=== PATIENT | male | born 1945 | race Caucasian/White ===

== ENCOUNTER 2017-02-01 22:03 | Inpatient (IN) | payer OTHER ==
--- NOTE | 2017-02-02 00:22 | DR.GENAD ---
HPI - PCP Primary Care Physician: MANSOOR - HPI Comment HPI Comment: PATIENT IS A DIABETIC WITH PREVIOUS SUGERY ON BOTH FEET. - Complaint/Symptoms Chief Complaint Doctors Comments: PAIN, SWELLING AND REDNESS LEFT FOOT AND LEG. PUNCTURE WOUND UNDER LEFT FOOT. PATIENT SAID IT DRAINS WHEN WALK. Chief Complaint:: REDNESS TO LT LOWER LEG FOR 3 DAYS - Nurses notes reviewed Nurses Notes Review: Yes - Source History Provided: Patient - Mode of Arrival Mode of Arrival: Ambulatory - Timing Onset of Chief Complaint: 01/30/17 Came on: Suddenly - Duration Duration: Constant Duration: Days - Severity Severity: Moderate PMH - PMH Past Medical History: Yes Past Medical History: Coronary Artery Disease, Diabetes, Hypertension, Renal Disease Past Surgical History: Yes Surgical History: CABG/Valve Surgery - Family History History of Family Medical Conditions: No - Social History Does any household member use tobacco: No Do you use any recreational Drugs:: No Lives With: Family Lives Where: Home - infectious screening In the last 2 months have you had wt loss of >10#?: NO Have you had fever, night sweats or hemotysis?: No Have you traveled outside the country in the last 6 months?: No Isolation: Standard ROS - Review of Systems Constitutional: Weakness, Fatigue. negative: Chills, Fever Eyes: negative: Eye Pain, Discharge ENTM: negative: Ear Pain, Nose Discharge, Nose Congestion, Throat Pain Respiratoy: Non-Productive Cough, Short of Breath (ON EXERTION). negative: Wheezing, Hemoptysis Cardiovascular: Chest Pain, Edema Gastrointestinal/Abdominal: Abdominal Pain. negative: Diarrhea, Nausea, Vomiting Genitourinary: negative: Dysuria, Hematuria Neurological: Headache, Weakness, Dizziness Musculoskeletal: Joint Pain, Joint Swelling, Muscle Pain Integumentary: Change in Color, Rash Hematologic/Lymphatic: Easy Bleeding, Easy Bruising Endocrine: No Symptoms Reported. negative: Flushing, Increased Thirst, Increased Urine All Other Systems: Reviewed and Negative PE - Vital Signs Vitals: Temperature 99.8 F Pulse Rate [Right Brachial] 99 Pulse Rate 107 Respiratory Rate 18 Blood Pressure [Right Arm] 106/62 Blood Pressure [Left Arm] 126/60 Blood Pressure 101/55 O2 Sat by Pulse Oximetry 96 - General Limitations: No Limitations General Appearance: Alert - Head Head Exam: Normal Inspection - Eyes Eye exam: Normal Appearance - ENT ENT Exam: Normal External Ear Exam External Ear Exam: Normal External Inspection TM/Canal Exam: Bilateral Normal Nose Exam: Normal Nose Exam Mouth Exam: Normal Inspection Throat Exam: Normal Inspection - Neck Neck Exam: Trachea Midline - Chest Chest Inspection: Symmetric Chest Wall Rise - Respiratory Respiratory Exam: Normal Lung Sounds Bilat Respiratory Exam: Bilateral Rhonchi, Upper Rhonchi, Lower Rhonchi - Cardiovascular Cardiovascular Exam: Regular Rate, Normal Rhythm, Normal Heart Sounds - Abdominal Exam Abdominal Exam: Normal Bowel Sounds, Soft. negative: Tenderness - Extremities Extremities Exam: Tenderness (LEFT FOOT AND LEG WITH REDNESS BELOW LEFT KNEE FROM LEFT FOOT.) - Back Back Exam: Paraspinal Tenderness - Neurologic Neurological Exam: Alert, Oriented X3 - Psychiatric Psychiatric Exam: Normal Affect, Normal Mood - Skin Skin Exam: Erythema MDM - Additional Information Additional Information Obtained From: Family - Differential Diagnosis Differential Diagnosis: CELLULITIS LT FOOT AND LEG, DIABETIC FOOT ULCER/PUNTURE WOUND BELOW LT FOOT Course - Treatment Treatment: ZOSYN ANS VANCOMYCIN STARTED. IV FLUIDS STATED IN ED, - Consultation Consultation Comments: DISCUSS PATIENT WITH DR. NARVAEZ, HE WILL ADMIT PATIENT. - Education/Counseling Education/Counseling: Patient, Family, Education Educated On: Treatment, Diagnosis ROR - Labs Reviewed Laboratory Results Reviewed?: Yes Result Diagrams: 02/02/17 05:21 02/02/17 05:21 Laboratory: WBC 15.9 X10^3/uL (3.6-10.0) H 02/02/17 05:21 RBC 4.44 X10^6/uL (4.7-6.0) L 02/02/17 05:21 Hgb 13.1 g/dL (13.5-18.0) L 02/02/17 05:21 Hct 38.6 % (42.0-54.0) L 02/02/17 05:21 MCV 87.0 fL (80.0-100.0) 02/02/17 05:21 MCH 29.6 pg (27.0-34.0) 02/02/17 05:21 MCHC 34.0 g/dL (33.0-35.0) 02/02/17 05:21 RDW 14.9 % (11.6-16.5) 02/02/17 05:21 Plt Count 134 X10^3/uL (150.0-450.0) L 02/02/17 05:21 MPV 9.3 fL (7.4-11.0) 02/02/17 05:21 Neut % 79.4 % (42.0-75.0) H 02/02/17 05:21 Lymph % 10.4 % (21.0-51.0) L 02/02/17 05:21 [place] % 9.3 % (0.0-13.0) 02/02/17 05:21 Eos % 0.6 % (0.9-2.9) L 02/02/17 05:21 Baso % 0.3 % (0.2-1.0) 02/02/17 05:21 Neut # 12.6 x10^3/uL (2.2-4.8) H 02/02/17 05:21 Lymph # 1.6 X10^3/uL (1.3-2.9) 02/02/17 05:21 [place] # 1.5 x10^3/uL (0.3-0.8) H 02/02/17 05:21 Eos # 0.1 x10^3/uL (0.0-0.2) 02/02/17 05:21 Baso # 0.0 X10^3/uL (0.0-0.1) 02/02/17 05:21 Absolute Nucleated RBC 0.0 /100WBC 02/02/17 05:21 Sodium 138 mmol/L (136-145) 02/02/17 05:21 Corrected Sodium 139 mmol/L (136-145) 02/02/17 05:21 Potassium 3.5 mmol/L (3.5-5.1) 02/02/17 05:21 Chloride 104 mmol/L (98-107) 02/02/17 05:21 Carbon Dioxide 23.1 mmol/L (21-32) 02/02/17 05:21 BUN 17 mg/dL (7-18) 02/02/17 05:21 Creatinine 1.30 mg/dL (0.70-1.30) 02/02/17 05:21 Est GFR (MDRD) Af Amer > 60 (>60) 02/02/17 05:21 Est GFR (MDRD) Non-Af 58 (>60) L 02/02/17 05:21 Glucose 124 mg/dL (65-99) H 02/02/17 05:21 POC Glucose (mg/dL) 155 mg/dL (65-99) H 02/02/17 07:08 Calcium 8.6 mg/dL (8.5-10.1) 02/02/17 05:21 Corrected Calcium 9.4 mg/dL (8.5-10.1) 02/02/17 05:21 Total Bilirubin 1.70 mg/dL (0.2-1.0) H 02/02/17 05:21 AST 12 Units/L (15-37) L 02/02/17 05:21 ALT 14 Units/L (12-78) 02/02/17 05:21 Alkaline Phosphatase 49 Units/L (46-116) 02/02/17 05:21 Total Protein 6.8 g/dL (6.4-8.2) 02/02/17 05:21 Albumin 3.0 g/dL (3.4-5.0) L 02/02/17 05:21 Globulin 3.8 g/dL (2.5-4.5) 02/02/17 05:21 Albumin/Globulin Ratio 0.8 Ratio (1.1-2.1) L 02/02/17 05:21 - XRAY XRAY Interpreted by: Radiologist XRAY Findings: REPORT DISCUSS WITH PATIENT AND FAMILY. - Diagnosis Discharge Problem: Cellulitis of left lower extremity Diabetic foot ulcer Qualifiers: Diabetic foot ulcer location: midfoot Diabetes mellitus type: type 1 Laterality : left Non-pressure ulcer stage: unspecified non-pressure ulcer stage Qualified Code(s): E10.621 - Type 1 diabetes mellitus with foot ulcer - Discharge Plan Disposition: ADMITTED INPATIENT Condition: Stable - Follow ups/Referrals - Instructions
[2017-02-02 00:50] LABS: BASOPHILS # (AUTO) 0.1 X10^3/uL (0.0-0.1); BASOPHILS % (AUTO) 0.7 % (0.2-1.0); EOSINOPHILS # (AUTO) 0.1 x10^3/uL (0.0-0.2); EOSINOPHILS % (AUTO) 0.6 % (0.9-2.9); HEMATOCRIT 38.9 % (42.0-54.0); HEMOGLOBIN 13.1 g/dL (13.5-18.0); LYMPHOCYTES # (AUTO) 1.7 X10^3/uL (1.3-2.9); LYMPHOCYTES % (AUTO) 10.4 % (21.0-51.0); MEAN CORPUSCULAR HEMOGLOBIN 29.4 pg (27.0-34.0); MEAN CORPUSCULAR HGB CONC 33.7 g/dL (33.0-35.0); MEAN CORPUSCULAR VOLUME 87.4 fL (80.0-100.0); MEAN PLATELET VOLUME 8.6 fL (7.4-11.0); MONOCYTES # (AUTO) 1.5 x10^3/uL (0.3-0.8); MONOCYTES % (AUTO) 8.9 % (0.0-13.0); NEUTROPHILS # (AUTO) 13.2 x10^3/uL (2.2-4.8); NEUTROPHILS % (AUTO) 79.4 % (42.0-75.0); PLATELET COUNT 132 X10^3/uL (150.0-450.0); RED BLOOD COUNT 4.44 X10^6/uL (4.7-6.0); RED CELL DISTRIBUTION WIDTH 14.7 % (11.6-16.5); WHITE BLOOD COUNT 16.6 X10^3/uL (3.6-10.0)
[2017-02-02 01:09] LABS: ALANINE AMINOTRANSFERASE 15 Units/L (12-78); ALBUMIN 3.3 g/dL (3.4-5.0); ALKALINE PHOSPHATASE 56 Units/L (46-116); ASPARTATE AMINO TRANSFERASE 13 Units/L (15-37); BLOOD UREA NITROGEN 19 mg/dL (7-18); CALCIUM 8.9 mg/dL (8.5-10.1); CARBON DIOXIDE 24.5 mmol/L (21-32); CHLORIDE 101 mmol/L (98-107); COR CA(FOR HYPOALB) 9.5 mg/dL (8.5-10.1); COR NA(FOR HYPERGLY) 138 mmol/L (136-145); CREATININE 1.42 mg/dL (0.70-1.30); SODIUM 136 mmol/L (136-145); TOTAL PROTEIN 7.2 g/dL (6.4-8.2); eGFR BLACK RACES > 60 (>60); eGFR NON BLACK RACES 52 (>60)
--- NOTE | 2017-02-02 02:58 | RAD ---
Three views of the left foot Indication: Redness and swelling with foot wound Findings: There is circumferential soft tissue swelling within the left foot with skin ulceration bony ng the plantar aspect of the midfoot. There is lateral subluxation of the 2nd, 3rd and 4th metatarsal bases consistent with severe Lisfranc injury. There is fragmentation of the midfoot with collapse of the navicular bone consistent with a neuropathic joint in association with severe ligamentous disrup tion/insufficiency of the Lisfranc joint. There is no definite cortical destruction identified to sug gest osteomyelitis based on radiographic evaluation. Dependent changes Achilles and plantar fascia. C alcified atherosclerotic disease of posterior tibialis artery. Impression: See above. Reported By:
[2017-02-02] MEDS ORDERED: MORPHINE SULFATE INJ 2 MG INJ IVP PRN (03:12)
[2017-02-02] MEDS ORDERED: ZOFRAN INJ 4 MG VIAL 16 MG, ATIVAN INJ 2 MG VIAL 1 MG, DECADRON INJ 10 MG in NS 50 ML I... IV PRN (03:18)
[2017-02-02] MEDS ORDERED: ZOFRAN INJ 4 MG VIAL IVP PRN (03:18)
[2017-02-02] MEDS ORDERED: ZOSYN VIAL 3.375 GM IV ONE (03:20)
[2017-02-02 03:58] VITALS: BMI 31.9
[2017-02-02] MEDS: NS 1000 ML 1,000 ML IV SCH ×3 (04:14→20:58)
[2017-02-02] MEDS: ZOSYN VIAL 3.375 GM 3.375 GM in NS 100 ML IV + SPIKE MINIBAG* 100 ML IV SCH ×2 (04:14→05:47)
[2017-02-02] MEDS ORDERED: VANCOMYCIN HCL 1 GM VIAL ONE (04:54)
[2017-02-02] MEDS ORDERED: D5W 250 ML IV 250 ML IV ONE (04:54)
[2017-02-02] MEDS: VANCOMYCIN HCL 500 MG VIAL 750 MG in D5W 250 ML IV 250 ML IV SCH ×2 (05:07→10:08)
[2017-02-02 06:28] LABS: BASOPHILS % (AUTO) 0.3 % (0.2-1.0); EOSINOPHILS # (AUTO) 0.1 x10^3/uL (0.0-0.2); EOSINOPHILS % (AUTO) 0.6 % (0.9-2.9); HEMATOCRIT 38.6 % (42.0-54.0); HEMOGLOBIN 13.1 g/dL (13.5-18.0); LYMPHOCYTES # (AUTO) 1.6 X10^3/uL (1.3-2.9); LYMPHOCYTES % (AUTO) 10.4 % (21.0-51.0); MEAN CORPUSCULAR HEMOGLOBIN 29.6 pg (27.0-34.0); MEAN PLATELET VOLUME 9.3 fL (7.4-11.0); MONOCYTES # (AUTO) 1.5 x10^3/uL (0.3-0.8); MONOCYTES % (AUTO) 9.3 % (0.0-13.0); NEUTROPHILS # (AUTO) 12.6 x10^3/uL (2.2-4.8); NEUTROPHILS % (AUTO) 79.4 % (42.0-75.0); PLATELET COUNT 134 X10^3/uL (150.0-450.0); RED BLOOD COUNT 4.44 X10^6/uL (4.7-6.0); RED CELL DISTRIBUTION WIDTH 14.9 % (11.6-16.5); WHITE BLOOD COUNT 15.9 X10^3/uL (3.6-10.0)
[2017-02-02 06:42] LABS: ALANINE AMINOTRANSFERASE 14 Units/L (12-78); ALKALINE PHOSPHATASE 49 Units/L (46-116); ASPARTATE AMINO TRANSFERASE 12 Units/L (15-37); BLOOD UREA NITROGEN 17 mg/dL (7-18); CALCIUM 8.6 mg/dL (8.5-10.1); CARBON DIOXIDE 23.1 mmol/L (21-32); CHLORIDE 104 mmol/L (98-107); COR CA(FOR HYPOALB) 9.4 mg/dL (8.5-10.1); COR NA(FOR HYPERGLY) 139 mmol/L (136-145); SODIUM 138 mmol/L (136-145); TOTAL PROTEIN 6.8 g/dL (6.4-8.2); eGFR BLACK RACES > 60 (>60); eGFR NON BLACK RACES 58 (>60)
[2017-02-02] MEDS ORDERED: TYLENOL #3 TAB (W/CODEINE) PO PRN (11:52)
[2017-02-02] MEDS ORDERED: PATIENT'S HOME MEDICATION (Metformin Hcl [Metformin Hcl] 1 TAB) PO SCH (12:00)
[2017-02-02] MEDS ORDERED: PATIENT'S HOME MEDICATION (Misc Home Med 1 DROP) AFFEYE SCH (13:00)
[2017-02-02] MEDS ORDERED: ZOSYN VIAL 3.375 GM 3.375 GM in NS 50 ML IV 50 ML IV SCH (14:00)
[2017-02-02] MEDS ORDERED: BACTRIM DS TAB PO SCH (15:16)
[2017-02-02] MEDS: SYNTHROID 175 mcg TAB PO SCH (15:44)
[2017-02-02] MEDS: NORVASC TAB 5 MG PO SCH (15:44)
[2017-02-02] MEDS: ASPIRIN PO SCH (15:44)
[2017-02-02] MEDS: AMARYL TAB 4 MG PO SCH ×2 (15:44→21:11)
[2017-02-02] MEDS: PROLENSA OPHTH 1 DOSE AFFEYE SCH (15:45)
[2017-02-02] MEDS: PRED FORTE 1 % AFFEYE SCH ×3 (15:45→21:15)
[2017-02-02] MEDS: GLUCOPHAGE PO SCH (16:45)
[2017-02-02] MEDS: TEFLARO 600 MG in D5W 50 ML IV 50 ML IV SCH ×2 (16:45→21:11)
[2017-02-02] MEDS: LIPITOR TAB 40 MG PO SCH (21:11)
[2017-02-02] MEDS: FLOMAX PO SCH (21:15)
[2017-02-03] MEDS: NS 1000 ML 1,000 ML IV SCH ×3 (04:44→21:30)
[2017-02-03] MEDS ORDERED: GLUCOPHAGE ONE ×2 (05:27→17:33)
[2017-02-03 05:33] LABS: BASOPHILS % (AUTO) 0.1 % (0.2-1.0); EOSINOPHILS % (AUTO) 0.1 % (0.9-2.9); HEMATOCRIT 36.1 % (42.0-54.0); HEMOGLOBIN 12.3 g/dL (13.5-18.0); LYMPHOCYTES # (AUTO) 1.2 X10^3/uL (1.3-2.9); LYMPHOCYTES % (AUTO) 6.2 % (21.0-51.0); MEAN CORPUSCULAR HEMOGLOBIN 29.6 pg (27.0-34.0); MEAN CORPUSCULAR HGB CONC 34.1 g/dL (33.0-35.0); MEAN CORPUSCULAR VOLUME 86.9 fL (80.0-100.0); MEAN PLATELET VOLUME 8.8 fL (7.4-11.0); MONOCYTES # (AUTO) 1.7 x10^3/uL (0.3-0.8); NEUTROPHILS # (AUTO) 16.2 x10^3/uL (2.2-4.8); NEUTROPHILS % (AUTO) 84.6 % (42.0-75.0); PLATELET COUNT 140 X10^3/uL (150.0-450.0); RED BLOOD COUNT 4.15 X10^6/uL (4.7-6.0); RED CELL DISTRIBUTION WIDTH 14.5 % (11.6-16.5); WHITE BLOOD COUNT 19.2 X10^3/uL (3.6-10.0)
[2017-02-03 05:46] LABS: ALANINE AMINOTRANSFERASE 12 Units/L (12-78); ALBUMIN 2.4 g/dL (3.4-5.0); ALKALINE PHOSPHATASE 38 Units/L (46-116); ASPARTATE AMINO TRANSFERASE 13 Units/L (15-37); BLOOD UREA NITROGEN 14 mg/dL (7-18); CALCIUM 7.8 mg/dL (8.5-10.1); CARBON DIOXIDE 21.2 mmol/L (21-32); CHLORIDE 103 mmol/L (98-107); COR CA(FOR HYPOALB) 9.1 mg/dL (8.5-10.1); COR NA(FOR HYPERGLY) 137 mmol/L (136-145); SODIUM 136 mmol/L (136-145); TOTAL PROTEIN 6.4 g/dL (6.4-8.2); eGFR BLACK RACES > 60 (>60); eGFR NON BLACK RACES > 60 (>60)
[2017-02-03] MEDS: GLUCOPHAGE PO SCH ×2 (06:10→17:34)
[2017-02-03] MEDS: PROLENSA OPHTH 1 DOSE AFFEYE SCH (09:15)
[2017-02-03] MEDS: PRED FORTE 1 % AFFEYE SCH ×4 (09:15→21:31)
[2017-02-03] MEDS: AMARYL TAB 4 MG PO SCH ×2 (09:16→21:30)
[2017-02-03] MEDS: SYNTHROID 175 mcg TAB PO SCH (09:16)
[2017-02-03] MEDS: NORVASC TAB 5 MG PO SCH (09:16)
[2017-02-03] MEDS: ASPIRIN PO SCH (09:16)
[2017-02-03] MEDS: TEFLARO 600 MG in D5W 50 ML IV 50 ML IV SCH ×2 (09:36→21:30)
[2017-02-03] MEDS ORDERED: PHARMACY CONSULT - DOSE _____ XX SCH (10:00)
[2017-02-03] MEDS: DIFLUCAN 200 MG IV PREMIX* 200 MG/100 ML BAG IV SCH (11:27)
[2017-02-03] MEDS: SNACK - Diabetic Appropriate PO SCH ×2 (11:45→21:30)
[2017-02-03] MEDS: FLOMAX PO SCH (21:30)
[2017-02-03] MEDS: LIPITOR TAB 40 MG PO SCH (21:30)
[2017-02-04] MEDS: NS 1000 ML 1,000 ML IV SCH ×2 (05:27→13:35)
[2017-02-04] MEDS ORDERED: GLUCOPHAGE ONE ×2 (05:51→16:17)
[2017-02-04] MEDS: GLUCOPHAGE PO SCH ×2 (06:06→16:42)
[2017-02-04 06:18] LABS: BASOPHILS % (AUTO) 0.2 % (0.2-1.0); HEMATOCRIT 36.1 % (42.0-54.0); HEMOGLOBIN 12.3 g/dL (13.5-18.0); LYMPHOCYTES # (AUTO) 1.4 X10^3/uL (1.3-2.9); LYMPHOCYTES % (AUTO) 7.3 % (21.0-51.0); MEAN CORPUSCULAR HEMOGLOBIN 29.5 pg (27.0-34.0); MEAN CORPUSCULAR VOLUME 86.7 fL (80.0-100.0); MEAN PLATELET VOLUME 8.5 fL (7.4-11.0); MONOCYTES # (AUTO) 1.5 x10^3/uL (0.3-0.8); MONOCYTES % (AUTO) 7.6 % (0.0-13.0); NEUTROPHILS # (AUTO) 16.5 x10^3/uL (2.2-4.8); NEUTROPHILS % (AUTO) 84.9 % (42.0-75.0); PLATELET COUNT 158 X10^3/uL (150.0-450.0); RED BLOOD COUNT 4.16 X10^6/uL (4.7-6.0); RED CELL DISTRIBUTION WIDTH 14.6 % (11.6-16.5); WHITE BLOOD COUNT 19.4 X10^3/uL (3.6-10.0)
[2017-02-04 06:56] LABS: ALANINE AMINOTRANSFERASE 14 Units/L (12-78); ALBUMIN 2.4 g/dL (3.4-5.0); ALKALINE PHOSPHATASE 45 Units/L (46-116); ASPARTATE AMINO TRANSFERASE 16 Units/L (15-37); BLOOD UREA NITROGEN 13 mg/dL (7-18); CALCIUM 8.2 mg/dL (8.5-10.1); CARBON DIOXIDE 22.4 mmol/L (21-32); CHLORIDE 103 mmol/L (98-107); COR CA(FOR HYPOALB) 9.5 mg/dL (8.5-10.1); COR NA(FOR HYPERGLY) 136 mmol/L (136-145); CREATININE 1.37 mg/dL (0.70-1.30); SODIUM 136 mmol/L (136-145); TOTAL PROTEIN 6.6 g/dL (6.4-8.2); eGFR BLACK RACES > 60 (>60); eGFR NON BLACK RACES 54 (>60)
[2017-02-04] MEDS: DIFLUCAN 200 MG IV PREMIX* 200 MG/100 ML BAG IV SCH (10:02)
[2017-02-04] MEDS: TEFLARO 600 MG in D5W 50 ML IV 50 ML IV SCH ×2 (10:02→22:07)
[2017-02-04] MEDS: ASPIRIN PO SCH (10:03)
[2017-02-04] MEDS: NORVASC TAB 5 MG PO SCH (10:03)
[2017-02-04] MEDS: SYNTHROID 175 mcg TAB PO SCH (10:03)
[2017-02-04] MEDS: PROLENSA OPHTH 1 DOSE AFFEYE SCH (10:03)
[2017-02-04] MEDS: AMARYL TAB 4 MG PO SCH ×2 (10:03→22:07)
[2017-02-04] MEDS: PRED FORTE 1 % AFFEYE SCH ×4 (10:03→22:21)
[2017-02-04] MEDS ORDERED: XOPENEX 1.25 MG/3 ML NEBULE NEB ONE (13:38)
[2017-02-04] MEDS: FLOMAX PO SCH (22:07)
[2017-02-04] MEDS: LIPITOR TAB 40 MG PO SCH (22:08)
[2017-02-04] MEDS: SNACK - Diabetic Appropriate PO SCH (22:20)
[2017-02-05] MEDS: NS 1000 ML 1,000 ML IV SCH ×4 (00:50→18:43)
[2017-02-05] MEDS ORDERED: MAXIPIME 2 GM in NS 100 ML IV + SPIKE MINIBAG* 100 ML IV SCH (02:00)
[2017-02-05] MEDS ORDERED: NS 100 ML IV 100 ML IV ONE (03:23)
[2017-02-05] MEDS ORDERED: MAXIPIME ONE ×2 (03:23→10:06)
[2017-02-05] MEDS ORDERED: MAXIPIME 2 GM in NS 100 ML IV 100 ML IV SCH (03:30)
[2017-02-05 05:29] LABS: BASOPHILS % (AUTO) 0.2 % (0.2-1.0); EOSINOPHILS # (AUTO) 0.1 x10^3/uL (0.0-0.2); EOSINOPHILS % (AUTO) 0.5 % (0.9-2.9); HEMATOCRIT 34.4 % (42.0-54.0); HEMOGLOBIN 11.6 g/dL (13.5-18.0); LYMPHOCYTES # (AUTO) 1.4 X10^3/uL (1.3-2.9); LYMPHOCYTES % (AUTO) 8.5 % (21.0-51.0); MEAN CORPUSCULAR HEMOGLOBIN 29.4 pg (27.0-34.0); MEAN CORPUSCULAR HGB CONC 33.8 g/dL (33.0-35.0); MEAN CORPUSCULAR VOLUME 86.7 fL (80.0-100.0); MEAN PLATELET VOLUME 8.4 fL (7.4-11.0); MONOCYTES # (AUTO) 1.3 x10^3/uL (0.3-0.8); MONOCYTES % (AUTO) 7.7 % (0.0-13.0); NEUTROPHILS # (AUTO) 13.7 x10^3/uL (2.2-4.8); NEUTROPHILS % (AUTO) 83.1 % (42.0-75.0); PLATELET COUNT 170 X10^3/uL (150.0-450.0); RED BLOOD COUNT 3.97 X10^6/uL (4.7-6.0); RED CELL DISTRIBUTION WIDTH 14.4 % (11.6-16.5); WHITE BLOOD COUNT 16.5 X10^3/uL (3.6-10.0)
[2017-02-05] MEDS ORDERED: GLUCOPHAGE ONE ×2 (05:51→16:43)
[2017-02-05] MEDS: GLUCOPHAGE PO SCH ×2 (06:04→16:54)
[2017-02-05 06:53] LABS: ALANINE AMINOTRANSFERASE 18 Units/L (12-78); ALBUMIN 2.2 g/dL (3.4-5.0); ALKALINE PHOSPHATASE 43 Units/L (46-116); ASPARTATE AMINO TRANSFERASE 25 Units/L (15-37); BLOOD UREA NITROGEN 11 mg/dL (7-18); CALCIUM 8.1 mg/dL (8.5-10.1); CARBON DIOXIDE 20.5 mmol/L (21-32); CHLORIDE 105 mmol/L (98-107); COR CA(FOR HYPOALB) 9.5 mg/dL (8.5-10.1); CREATININE 1.19 mg/dL (0.70-1.30); SODIUM 137 mmol/L (136-145); TOTAL PROTEIN 6.4 g/dL (6.4-8.2); eGFR BLACK RACES > 60 (>60); eGFR NON BLACK RACES > 60 (>60)
[2017-02-05] MEDS: PRED FORTE 1 % AFFEYE SCH ×4 (09:55→21:29)
[2017-02-05] MEDS: AMARYL TAB 4 MG PO SCH ×2 (09:55→21:27)
[2017-02-05] MEDS: NORVASC TAB 5 MG PO SCH (09:57)
[2017-02-05] MEDS: PROLENSA OPHTH 1 DOSE AFFEYE SCH (09:59)
[2017-02-05] MEDS: TEFLARO 600 MG in D5W 50 ML IV 50 ML IV SCH (10:00)
[2017-02-05] MEDS ORDERED: NS 50 ML IV 50 ML IV ONE (10:06)
[2017-02-05] MEDS: SYNTHROID 175 mcg TAB PO SCH (10:07)
[2017-02-05] MEDS: DIFLUCAN 200 MG IV PREMIX* 200 MG/100 ML BAG IV SCH (10:08)
[2017-02-05] MEDS: ASPIRIN PO SCH (10:08)
[2017-02-05] MEDS ORDERED: HIBICLENS WASH ONE (12:19)
--- NOTE | 2017-02-05 13:16 | DR.CONSULT ---
Consult - Consultation for Day of: Date: 02/05/17 - Chief Complaint Chief Complaint: Left foot edema and cellulitis. - Allergies Allergies/Adverse Reactions: Allergies Allergy/AdvReac Type Severity Reaction Status Date / Time No Known Drug Allergies Allergy Verified 02/01/17 22:05 - History of Present Illness History of Present Illness: The patient is a 71 year old male with DM that presented to the ER with left foot cellulitis. The patient admits to a plantar wound with serous drainage for several days. 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 (+) LE neuropathy. The patient denies any hardware to the left foot. The patient was admitted and placed on IV abx. Increased edema was noted along the dorsal aspect of the foot with skin breakdown laterally. Surgery was consulted for possible incision and drainage. - Past Medical History Past Medical History: Coronary Artery Disease, Diabetes, Hypertension, Renal Disease - Past Surgical History Surgical History: CABG/Valve Surgery - Family History Family Medical History: Coronary Artery Disease, Hypertension - Social History Does patient currently use any type of tobacco product: No Have you used tobacco products in the last 12 months: No Type of Tobacco Use: Smokeless Does any household member use tobacco: No Alcohol Use: None Drug Use: None - Medications Home Medications: Amlodipine Besylate [NORVASC 5 MG *] 1 tab PO DAILY 02/02/17 [History Confirmed 02/02/17] Aspirin [ASPIRIN 325 MG *] 1 tab PO DAILY 02/02/17 [History Confirmed 02/02/17] Atorvastatin Calcium [LIPITOR Tab 40 mg *] 1 tab PO HS 02/02/17 [History Confirmed 02/02/17] Bromfenac Sodium [Prolensa] 1 drop AFFEYE DAILY 02/02/17 [History Confirmed ] Ergocalciferol [Vitamin D (1.25MG)] 1 cap PO WEEKLY 02/02/17 [History Confirmed 02/02/17] Glimepiride [Glimepiride] 1 tab PO BID 02/02/17 [History Confirmed 02/02/17] Levothyroxine Sodium 1 tab PO DAILY 02/02/17 [History Confirmed 02/02/17] Metformin HCl 1 tab PO BID 02/02/17 [History Confirmed 02/02/17] Misc Home Med [Patient's Home Medication (Non-PO)] 1 drop AFFEYE QID 02/02/17 [ History Confirmed 02/02/17] PrednisoLONE ACETATE (OPHTH) [PRED FORTE (OPHTH) SUSP 1 % *] 1 drop AFFEYE QID 02/02/17 [History Confirmed 02/02/17] Tamsulosin HCl [FLOMAX (GENERIC) 0.4 MG *] 1 tab PO DAILY 02/02/17 [History Confirmed 02/02/17] - Review of Systems Constitutional: No Symptoms Reported Eyes: No Symptoms Reported ENT: No Symptoms Reported Respiratory: No Symptoms Reported Cardiovascular: No Symptoms Reported Gastrointestinal: No Symptoms Reported Genitourinary: No Symptoms Reported Musculoskeletal: Foot Pain Skin: Wound Neurological: Other (Neuropathy) - Physical Exam Vital Signs: Temperature 99.8 F Pulse Rate [Right Brachial] 89 Pulse Rate 107 Respiratory Rate 20 Blood Pressure [Right Arm] 135/79 Blood Pressure [Left Arm] 126/60 Blood Pressure 101/55 O2 Sat by Pulse Oximetry 96 Oriented: Normal Eyes: Normal Respiratory: Clear Throughout Cardiovascular: Normal Auscultation: Bowel Sounds: Normal Palpation: Normal Tenderness: Normal Skin: Red (Left LE and foot. Erythema improved from mid-calf where skin franks are present from admission per patient.), Wound (Left lateral foot distal to heel. Skin sloughing with serous drainage.) Musculoskeletal: Swelling (Left foot.), Tender (Left foot arch.), Pulse Deficit (Unable to palpate left DP or PT due to edema. Femoral and popliteal palpable.) Psychiatric: Normal Mood Description: Calm Affect: Normal Speech Pattern: Clear - Plan Plan: 71 year old male with DM and neuropathy. Left LE cellulitis and foot edema. Agree with broad spectrum abx. Increased foot edema since admission concerning for abscess formation. No drainagable fluid collection on exam. Recommend CT with IV contrast to further evaluate. May need subsequent MRI and ESR to ensure no OM present. If fluid collection identified, will proceed with I&D. Elevate left LE above level of heart. Local wound care. Tight glycemic control. Follow up LE arterial ultrasound but pulses proximally are palpable. Suspect microvascular disease and neuropathy primary etiology.
[2017-02-05] MEDS: PHARMACY CONSULT - VANCOMYCIN XX SCH (18:17)
--- NOTE | 2017-02-05 20:36 | CT ---
HISTORY: LEFT FOOT WOUND. Study: CT left lower extremity with contrast Comparison: Left foot series dated same day. Technique: Multiple axial images of the left lower extremity with administration of IV contrast. Sag ittal and coronal reformats were performed and reviewed. Dose reduction techniques including Automate d Exposure Control (AEC) and adjustment of mA and kV were utilized. Findings: Left total knee arthroplasty limits evaluation of the osseous and soft tissue structures about the kn ee secondary to streak artifact. Extensive vascular calcifications are noted of the tibial vasculatur e. However, the tibial vasculature appears patent. There is collapse and fragmentation of the left mi dfoot consistent with a neuropathic joint. Extensive soft tissue swelling and non loculated free flui d is seen about the midfoot. There is also there is lateral subluxation of the 2nd through 5th metata rsals and fragmentation at the Lisfranc joint. This suggestion of complete disruption. Remaining soft tissue structures appear unremarkable. IMPRESSION: Constellation of findings likely representing a neuropathic joint of the left midfoot. Abraham rrounding soft tissue swelling and non loculated free fluid. If clinically concerned for osteomyeliti s MRI is more sensitive. Reported By:
[2017-02-05] MEDS ORDERED: D5W 250 ML IV 250 ML IV ONE (21:17)
[2017-02-05] MEDS ORDERED: VANCOMYCIN HCL 1 GM VIAL ONE (21:17)
[2017-02-05] MEDS ORDERED: VANCOMYCIN HCL 500 MG VIAL ONE (21:17)
[2017-02-05] MEDS: VANCOMYCIN HCL 500 MG VIAL 250 MG, VANCOMYCIN HCL 1 GM VIAL 1 GM in D5W 250 ML IV 250 ML IV SCH (21:26)
[2017-02-05] MEDS: SNACK - Diabetic Appropriate PO SCH (21:27)
[2017-02-05] MEDS: FLOMAX PO SCH ×2 (21:27→21:28)
[2017-02-05] MEDS: LIPITOR TAB 40 MG PO SCH (21:28)
[2017-02-06 06:05] LABS: BASOPHILS # (AUTO) 0.1 X10^3/uL (0.0-0.1); BASOPHILS % (AUTO) 0.6 % (0.2-1.0); EOSINOPHILS # (AUTO) 0.2 x10^3/uL (0.0-0.2); EOSINOPHILS % (AUTO) 1.5 % (0.9-2.9); HEMATOCRIT 35.8 % (42.0-54.0); HEMOGLOBIN 12.3 g/dL (13.5-18.0); LYMPHOCYTES # (AUTO) 1.6 X10^3/uL (1.3-2.9); LYMPHOCYTES % (AUTO) 12.5 % (21.0-51.0); MEAN CORPUSCULAR HEMOGLOBIN 29.5 pg (27.0-34.0); MEAN CORPUSCULAR HGB CONC 34.3 g/dL (33.0-35.0); MEAN CORPUSCULAR VOLUME 86.1 fL (80.0-100.0); MEAN PLATELET VOLUME 8.1 fL (7.4-11.0); MONOCYTES # (AUTO) 1.1 x10^3/uL (0.3-0.8); MONOCYTES % (AUTO) 8.3 % (0.0-13.0); NEUTROPHILS # (AUTO) 10.1 x10^3/uL (2.2-4.8); NEUTROPHILS % (AUTO) 77.1 % (42.0-75.0); PLATELET COUNT 202 X10^3/uL (150.0-450.0); RED BLOOD COUNT 4.16 X10^6/uL (4.7-6.0); RED CELL DISTRIBUTION WIDTH 14.8 % (11.6-16.5)
[2017-02-06] MEDS: NS 1000 ML 1,000 ML IV SCH ×3 (06:07→18:14)
[2017-02-06 06:55] LABS: ALANINE AMINOTRANSFERASE 32 Units/L (12-78); ALBUMIN 2.2 g/dL (3.4-5.0); ALKALINE PHOSPHATASE 55 Units/L (46-116); ASPARTATE AMINO TRANSFERASE 41 Units/L (15-37); BLOOD UREA NITROGEN 11 mg/dL (7-18); CALCIUM 8.3 mg/dL (8.5-10.1); CARBON DIOXIDE 25.2 mmol/L (21-32); CHLORIDE 104 mmol/L (98-107); COR CA(FOR HYPOALB) 9.7 mg/dL (8.5-10.1); COR NA(FOR HYPERGLY) 139 mmol/L (136-145); SODIUM 139 mmol/L (136-145); TOTAL PROTEIN 6.7 g/dL (6.4-8.2); eGFR BLACK RACES > 60 (>60); eGFR NON BLACK RACES 58 (>60)
[2017-02-06 07:11] LABS: ERYTHROCYTE SEDIMENTATION RATE 91 MM/HOUR (0-15)
--- NOTE | 2017-02-06 08:24 | DR.H&P ---
H&P - History & Physical for Day of: H&P Date: 02/02/17 - Chief Complaint Chief Complaint: LLE REDNESS AND SWELLING - Allergies Allergies/Adverse Reactions: Allergies Allergy/AdvReac Type Severity Reaction Status Date / Time No Known Drug Allergies Allergy Verified 02/01/17 22:05 - History of Present Illness History of Present Illness: 71 WM ADMITTED AFTER PRESENTING TO ED WITH CO LLE INCREASED REDNESS AND EDEMA. PT HAS HX OF DM, NEUROPATHY, CAD,TRAUMATIC FRACTURE TO LEFT FOOT. PT WBC ELEVATED ON ADMISSION, PLAN TO ADMIT FOR FURTHER EVALUATION OF CELLULITIS, TREAT WITH IV ATBX. - Past Medical History Past Medical History: Coronary Artery Disease, Diabetes, Hypertension, Renal Disease - Past Surgical History Surgical History: CABG/Valve Surgery - Family History Family Medical History: Coronary Artery Disease, Hypertension - Social History Does patient currently use any type of tobacco product: No Have you used tobacco products in the last 12 months: No Type of Tobacco Use: Smokeless Does any household member use tobacco: No Alcohol Use: None Drug Use: None - Medications Home Medications: Amlodipine Besylate [NORVASC 5 MG *] 1 tab PO DAILY 02/02/17 [History Confirmed 02/02/17] Aspirin [ASPIRIN 325 MG *] 1 tab PO DAILY 02/02/17 [History Confirmed 02/02/17] Atorvastatin Calcium [LIPITOR Tab 40 mg *] 1 tab PO HS 02/02/17 [History Confirmed 02/02/17] Bromfenac Sodium [Prolensa] 1 drop AFFEYE DAILY 02/02/17 [History Confirmed ] Ergocalciferol [Vitamin D (1.25MG)] 1 cap PO WEEKLY 02/02/17 [History Confirmed 02/02/17] Glimepiride [Glimepiride] 1 tab PO BID 02/02/17 [History Confirmed 02/02/17] Levothyroxine Sodium 1 tab PO DAILY 02/02/17 [History Confirmed 02/02/17] Metformin HCl 1 tab PO BID 02/02/17 [History Confirmed 02/02/17] Misc Home Med [Patient's Home Medication (Non-PO)] 1 drop AFFEYE QID 02/02/17 [ History Confirmed 02/02/17] PrednisoLONE ACETATE (OPHTH) [PRED FORTE (OPHTH) SUSP 1 % *] 1 drop AFFEYE QID 02/02/17 [History Confirmed 02/02/17] Tamsulosin HCl [FLOMAX (GENERIC) 0.4 MG *] 1 tab PO DAILY 02/02/17 [History Confirmed 02/02/17] - Review of Systems Constitutional: No Symptoms Reported Eyes: No Symptoms Reported ENT: No Symptoms Reported Respiratory: No Symptoms Reported Cardiovascular: Edema. denies: Chest Pain Gastrointestinal: No Symptoms Reported Genitourinary: No Symptoms Reported Musculoskeletal: Back Pain, Leg Pain, Foot Pain Skin: Rash, Wound Neurological: No Symptoms Reported - Physical Exam Vital Signs: Temperature 98.2 F Pulse Rate [Left Brachial] 75 Pulse Rate [Right Brachial] 83 Pulse Rate 107 Respiratory Rate 20 Blood Pressure [Right Arm] 120/59 Blood Pressure [Left Arm] 123/56 Blood Pressure 101/55 O2 Sat by Pulse Oximetry 93 Oriented: Normal Eyes: Normal Ear: Normal Throat: Normal Respiratory: RLL Diminished, LLL Diminished Cardiovascular: Normal : Normal Auscultation: Bowel Sounds: Normal Palpation: Normal Tenderness: Normal Skin: Red (LLE AND FOOT), Tender, Hot Mood Description: Calm Speech Pattern: Clear, Appropriate - Assessment/Plan (1) Cellulitis of left lower extremity Status: Acute Plan: ADMIT, IV ABTX, IV HYDRATION, BLOOD CULTURES. LLE XRAY ON ADMISSION, BLOOD SUGAR AND BLOOD PRESSURE CONTROL. RESUME HOME MEDS, ELEVATE LLE. CULTURE ANY D/C OR OPEN WOUND TO LLE (2) HTN (hypertension) Status: Acute (3) CAD (coronary artery disease) Status: Acute (4) Diabetes Status: Acute (5) Diabetic foot ulcer Qualifiers: Diabetic foot ulcer location: midfoot Diabetes mellitus type: type 1 Laterality: left Non-pressure ulcer stage: unspecified non-pressure ulcer stage Qualified Code(s): E10.621 - Type 1 diabetes mellitus with foot ulcer; L97.429 - Non-pressure chronic ulcer of left heel and midfoot with unspecified severity; L97.429 - Non-pressure chronic ulcer of left heel and midfoot with unspecified severity; L97.429 - Non-pressure chronic ulcer of left heel and midfoot with unspecified severity; L97.429 - Non-pressure chronic ulcer of left heel and midfoot with unspecified severity Status: Acute (6) Dehydration, mild Status: Acute
[2017-02-06] MEDS: NORVASC TAB 5 MG PO SCH (09:45)
[2017-02-06] MEDS: AMARYL TAB 4 MG PO SCH ×2 (09:45→20:56)
[2017-02-06] MEDS: PROLENSA OPHTH 1 DOSE AFFEYE SCH (09:45)
[2017-02-06] MEDS: MAXIPIME 2 GM in NS 100 ML IV + SPIKE MINIBAG* 100 ML IV SCH (09:45)
[2017-02-06] MEDS: ASPIRIN PO SCH (09:45)
[2017-02-06] MEDS: VANCOMYCIN HCL 500 MG VIAL 250 MG, VANCOMYCIN HCL 1 GM VIAL 1 GM in D5W 250 ML IV 250 ML IV SCH ×2 (09:45→21:17)
[2017-02-06] MEDS: PRED FORTE 1 % AFFEYE SCH ×4 (09:45→20:57)
[2017-02-06] MEDS: SYNTHROID 175 mcg TAB PO SCH (09:46)
[2017-02-06] MEDS: PHARMACY CONSULT - VANCOMYCIN XX SCH (17:51)
[2017-02-06] MEDS ORDERED: K-RIDER 10 MEQ/NS 100 ML 10 MEQ/100 ML BAG IV PRN (19:57)
[2017-02-06] MEDS ORDERED: POTASSIUM CHLORIDE LIQ 20 MEQ UDC PO PRN (19:57)
[2017-02-06] MEDS ORDERED: POTASSIUM CHL 60 MEQ/NS 0.45% 500 ML IV PRN (19:57)
[2017-02-06] MEDS ORDERED: POTASSIUM CHL 40 MEQ/NS 0.45% 500 ML IV PRN (19:57)
[2017-02-06] MEDS ORDERED: MAGNESIUM SULFATE 1 GM/100 mL PREMIX 1 GM/100 ML BAG IV PRN (19:57)
[2017-02-06] MEDS ORDERED: MAG-OX TAB PO PRN (19:57)
[2017-02-06 20:15] LABS: CREATININE 1.43 mg/dL (0.70-1.30); VANCOMYCIN,TROUGH 14.8 ug/mL (15-20)
--- NOTE | 2017-02-06 20:53 | PCM.PROG ---
Progress Note - Progress Note for Day of Date: 02/06/17 - Subjective Subjective: WAS ADMITTED FOR LEFT LOWER EXTREMITY CELLULIITIS AND DIABETIC FOOT ULCER. TODAY, HE IS ALERT AND ORIENTED, LYING IN BED ON MORNING ROUNDS. HE IS NOTED WITH COMPLAINTS OF LEFT FOOT PAIN. ON EXAMINATION, LUNGS ARE CLEAR TO AUSCULTATION. ABDOMEN IS ROUND, SOFT, AND NON-TENDER. NORMAL BOWEL SOUNDS ARE NOTED IN ALL QUADRANTS. LEFT LOWER EXTREMITY IS NOTED WITH ERYTHEMA AND EDEMA. LEFT FOOT IS NOTED WITH A TORO DRESSING. DRESSING REMOVED TO ASSESS WOUND. THERE IS SKIN BREAKDOWN LATERALLY. LEFT FOOT NOTED WITH ERYTHEMA AND EDEMA. THERE IS A DIABETIC WOUND TO THE LEFT LATERAL FOOT DISTAL TO HEEL. SKIN SLOUGHING WITH SEROUS DRAINAGE NOTED. PEDAL PULSES ARE NOT PALPABLE. CONSULTED WITH PATIENT AND ORDERED AN MRI FOR THIS MORNING. PATIENTS VITAL SIGNS THIS MORNING ARE 98.2-75-20-93%-123/56. ABNORMAL LAB VALUES INCLUDE THE FOLLOWING: WBC 13.0, RBC 4.16, HGB 12.3, HCT 35.8, POTASSIUM 3.4, GLUCOSE 119, CALCIUM 8.3, MAGNESIUM 1.5, AST 41, CRP 103.40, ESR 91, ALBUMIN 2.2. WOUND CULTURE REPORTS GROWTH OF STAPHYLOCOCCUS AUREUS. IT IS SENSITIVE TO THE VANCOMYCIN THAT HE IS CURRENTLY ON. PATIENT REPORTS THAT HE SEES , ORTHOPEDIC SURGEON AND WISHES TO CONSULT WITH HIM SHOULD WE NEED TO. WE WILL AWAIT RESULTS OF MRI TODAY AND CONTINUE TO MONITOR PATIENT. WE PLAN TO FOLLOW UP WITH AM LABS. - Past Medical Family Social History Past Med/Fam/Surg Hx: No changes since H&P Allergies: Allergies No Known Drug Allergies Allergy (Verified 02/01/17 22:05) - Review of Systems ROS: No change since H&P - Vital Signs and I&O's Vital Signs: Temperature 98.6 F Pulse Rate [Left Brachial] 76 Pulse Rate [Right Brachial] 83 Pulse Rate 107 Respiratory Rate 18 Blood Pressure [Right Arm] 131/62 Blood Pressure [Left Arm] 128/65 Blood Pressure 101/55 O2 Sat by Pulse Oximetry 95 Intake and Output: Intake & Output 02/04/17 02/05/17 02/06/17 02/07/17 11:59 11:59 11:59 11:59 Intake Total 2540 5970 1000 1360 Output Total 4799 808 1867 800 Balance 740 5070 -1350 560 - Physical Exam Oriented: Normal. negative: Time, Person, Place, Not Oriented, Unable to test, Other Eyes: Normal. negative: Blurred Vision, Diplopia, Discharge, Pain, Redness, Photophobia, Other Ear: Normal. negative: Right, Left, Swelling, Ecchymosis, Hemotypanum, Abrasion , Laceration Nose: Normal. negative: Injected, Discharge, Blood, Other Throat: Normal Respiratory: Normal. negative: Right, Left, Generalized, Superior, Inferior, Diminished, Wheezes, Rales, Rhonchi, OTHER Cardiovascular: Edema : Normal. negative: Dysuria, Hematuria, Frequency, Discharge, Testicular Pain , Bleeding, , Other Auscultation: Bowel Sounds: Normal Palpation: Normal Tenderness: Normal Skin: Red (LLE AND FOOT), Tender, Hot Musculoskeletal: Swelling (Left foot.), Tender (Left foot arch.), Pulse Deficit (Unable to palpate left DP or PT due to edema. Femoral and popliteal palpable.) Psychiatric: Normal Mood Description: Calm Affect: Normal Speech Pattern: Clear, Appropriate - Laboratory and Diagnostics Result Diagrams: 02/06/17 04:35 02/06/17 19:43 Labs: 02/04/17 16:43 Ankle - Left Gram Stain - Final 02/04/17 16:43 Ankle - Left Wound Culture - Final Staphylococcus Aureus 02/02/17 00:30 Blood Blood Culture - Preliminary 02/02/17 00:35 Blood Blood Culture - Final Laboratory WBC 13.0 X10^3/uL (3.6-10.0) H 02/06/17 04:35 RBC 4.16 X10^6/uL (4.7-6.0) L 02/06/17 04:35 Hgb 12.3 g/dL (13.5-18.0) L 02/06/17 04:35 Hct 35.8 % (42.0-54.0) L 02/06/17 04:35 MCV 86.1 fL (80.0-100.0) 02/06/17 04:35 MCH 29.5 pg (27.0-34.0) 02/06/17 04:35 MCHC 34.3 g/dL (33.0-35.0) 02/06/17 04:35 RDW 14.8 % (11.6-16.5) 02/06/17 04:35 Plt Count 202 X10^3/uL (150.0-450.0) 02/06/17 04:35 MPV 8.1 fL (7.4-11.0) 02/06/17 04:35 Neut % 77.1 % (42.0-75.0) H 02/06/17 04:35 Lymph % 12.5 % (21.0-51.0) L 02/06/17 04:35 [place] % 8.3 % (0.0-13.0) 02/06/17 04:35 Eos % 1.5 % (0.9-2.9) 02/06/17 04:35 Baso % 0.6 % (0.2-1.0) 02/06/17 04:35 Neut # 10.1 x10^3/uL (2.2-4.8) H 02/06/17 04:35 Lymph # 1.6 X10^3/uL (1.3-2.9) 02/06/17 04:35 [place] # 1.1 x10^3/uL (0.3-0.8) H 02/06/17 04:35 Eos # 0.2 x10^3/uL (0.0-0.2) 02/06/17 04:35 Baso # 0.1 X10^3/uL (0.0-0.1) 02/06/17 04:35 Absolute Nucleated RBC 0.1 /100WBC 02/06/17 04:35 ESR 91 MM/HOUR (0-15) H 02/06/17 04:35 Sodium 139 mmol/L (136-145) 02/06/17 04:35 Corrected Sodium 139 mmol/L (136-145) 02/06/17 04:35 Potassium 3.4 mmol/L (3.5-5.1) L 02/06/17 04:35 Chloride 104 mmol/L (98-107) 02/06/17 04:35 Carbon Dioxide 25.2 mmol/L (21-32) 02/06/17 04:35 BUN 11 mg/dL (7-18) 02/06/17 04:35 Creatinine 1.43 mg/dL (0.70-1.30) H 02/06/17 19:43 Est GFR (MDRD) Af Amer > 60 (>60) 02/06/17 04:35 Est GFR (MDRD) Non-Af 58 (>60) L 02/06/17 04:35 Glucose 119 mg/dL (65-99) H 02/06/17 04:35 POC Glucose (mg/dL) 235 mg/dL (65-99) H 02/06/17 16:57 Calcium 8.3 mg/dL (8.5-10.1) L 02/06/17 04:35 Corrected Calcium 9.7 mg/dL (8.5-10.1) 02/06/17 04:35 Magnesium 1.5 mg/dL (1.7-2.9) L 02/06/17 04:35 Total Bilirubin 0.80 mg/dL (0.2-1.0) 02/06/17 04:35 AST 41 Units/L (15-37) H 02/06/17 04:35 ALT 32 Units/L (12-78) 02/06/17 04:35 Alkaline Phosphatase 55 Units/L (46-116) 02/06/17 04:35 C-Reactive Protein 103.40 mg/L (0-3.0) H 02/06/17 04:35 Total Protein 6.7 g/dL (6.4-8.2) 02/06/17 04:35 Albumin 2.2 g/dL (3.4-5.0) L 02/06/17 04:35 Globulin 4.5 g/dL (2.5-4.5) 02/06/17 04:35 Albumin/Globulin Ratio 0.5 Ratio (1.1-2.1) L 02/06/17 04:35 Vancomycin Trough 14.8 ug/mL (15-20) L 02/06/17 19:43 - Plan (1) Cellulitis of left lower extremity Status: Acute Plan: CONTINUE IV ABTX, IV HYDRATION, OBTAIN MRI OF LLE, WOUND CARE AND DRESSING CHANGES, CONTINUE IV ABX, CONTINUE TO MONITOR (2) Staphylococcus aureus bacteremia Status: Acute Plan: CONTINUE VANCOMYCIN 1GM IV Q12H, CONTINUE CEFEPIME 2MG IV DAILY, CONTINUE TO MONITOR (3) CAD (coronary artery disease) Status: Acute Qualifiers: Coronary Disease-Associated Artery/Lesion type: [place] artery [place] vs. transplanted heart: [place] heart Associated angina: with unspecified angina Qualified Code(s): I25.119 - Atherosclerotic heart disease of [place] coronary artery with unspecified angina pectoris Plan: CONTINUE ASPIRIN, CONTINUE TO MONITOR
[2017-02-06] MEDS: FLOMAX PO SCH (20:55)
[2017-02-06] MEDS: SNACK - Diabetic Appropriate PO SCH (20:56)
[2017-02-06] MEDS: LIPITOR TAB 40 MG PO SCH (20:56)
[2017-02-06] MEDS ORDERED: VANCOMYCIN HCL 1 GM VIAL ONE (21:02)
[2017-02-06] MEDS ORDERED: D5W 250 ML IV 250 ML IV ONE (21:03)
[2017-02-06] MEDS ORDERED: VANCOMYCIN HCL 500 MG VIAL ONE (21:03)
[2017-02-07 05:52] LABS: ALANINE AMINOTRANSFERASE 34 Units/L (12-78); ALBUMIN 2.2 g/dL (3.4-5.0); ALKALINE PHOSPHATASE 47 Units/L (46-116); ASPARTATE AMINO TRANSFERASE 29 Units/L (15-37); BLOOD UREA NITROGEN 11 mg/dL (7-18); CALCIUM 8.3 mg/dL (8.5-10.1); CARBON DIOXIDE 25.3 mmol/L (21-32); CHLORIDE 104 mmol/L (98-107); COR CA(FOR HYPOALB) 9.7 mg/dL (8.5-10.1); COR NA(FOR HYPERGLY) 139 mmol/L (136-145); CREATININE 1.29 mg/dL (0.70-1.30); SODIUM 139 mmol/L (136-145); TOTAL PROTEIN 6.9 g/dL (6.4-8.2); eGFR BLACK RACES > 60 (>60); eGFR NON BLACK RACES 58 (>60)
[2017-02-07] MEDS: NS 1000 ML 1,000 ML IV SCH ×3 (05:56→18:38)
[2017-02-07 06:01] LABS: BASOPHILS # (AUTO) 0.1 X10^3/uL (0.0-0.1); BASOPHILS % (AUTO) 0.6 % (0.2-1.0); EOSINOPHILS # (AUTO) 0.4 x10^3/uL (0.0-0.2); EOSINOPHILS % (AUTO) 2.8 % (0.9-2.9); HEMATOCRIT 35.4 % (42.0-54.0); HEMOGLOBIN 12.3 g/dL (13.5-18.0); LYMPHOCYTES # (AUTO) 1.8 X10^3/uL (1.3-2.9); LYMPHOCYTES % (AUTO) 14.2 % (21.0-51.0); MEAN CORPUSCULAR HEMOGLOBIN 29.6 pg (27.0-34.0); MEAN CORPUSCULAR HGB CONC 34.8 g/dL (33.0-35.0); MEAN CORPUSCULAR VOLUME 85.1 fL (80.0-100.0); MEAN PLATELET VOLUME 7.7 fL (7.4-11.0); MONOCYTES # (AUTO) 1.1 x10^3/uL (0.3-0.8); MONOCYTES % (AUTO) 8.9 % (0.0-13.0); NEUTROPHILS # (AUTO) 9.3 x10^3/uL (2.2-4.8); NEUTROPHILS % (AUTO) 73.5 % (42.0-75.0); PLATELET COUNT 247 X10^3/uL (150.0-450.0); RED BLOOD COUNT 4.17 X10^6/uL (4.7-6.0); RED CELL DISTRIBUTION WIDTH 14.6 % (11.6-16.5); WHITE BLOOD COUNT 12.7 X10^3/uL (3.6-10.0)
[2017-02-07 06:36] LABS: ERYTHROCYTE SEDIMENTATION RATE 93 MM/HOUR (0-15)
[2017-02-07] MEDS: K-LYTE EFFERVESCENT PO PRN ×2 (06:57→17:35)
[2017-02-07] MEDS: NORVASC TAB 5 MG PO SCH (08:34)
[2017-02-07] MEDS: SYNTHROID 175 mcg TAB PO SCH (08:34)
[2017-02-07] MEDS: AMARYL TAB 4 MG PO SCH ×2 (08:34→21:48)
[2017-02-07] MEDS: PROLENSA OPHTH 1 DOSE AFFEYE SCH (08:34)
[2017-02-07] MEDS: ASPIRIN PO SCH (08:34)
[2017-02-07] MEDS: VANCOMYCIN HCL 500 MG VIAL 250 MG, VANCOMYCIN HCL 1 GM VIAL 1 GM in D5W 250 ML IV 250 ML IV SCH ×2 (08:34→21:48)
[2017-02-07] MEDS: PRED FORTE 1 % AFFEYE SCH ×4 (08:34→21:49)
[2017-02-07] MEDS: MAXIPIME 2 GM in NS 100 ML IV + SPIKE MINIBAG* 100 ML IV SCH (08:34)
--- NOTE | 2017-02-07 10:48 | MRI ---
HISTORY: LEFT FOOT PAIN AND DIABETIC ULCERATION. EXAM: PRE AND POSTCONTRAST MRI EXAM OF THE LEFT FOOT. TECHNIQUE: Multisequence and multiplanar T1 and T2 weighted sequences of the left foot were obtained with and without the administration of IV paramagnetic contrast at 1.5 Yanni. COMPARISON: Radiograph dated 02/02/2017. FINDINGS: There is abnormal cutaneous and deep soft tissue contrast enhancement seen throughout the dorsal soft tissues of the left foot which extends in the webspace between the 4th and 5th digits. As stated on plain film radiographs, there is also plantar ulceration with adjacent subcutaneous and deep soft tis zina enhancement about this foot ulceration. These soft tissue findings most likely reflect changes of an infectious or inflammatory cellulitis and phlegmonous change involving the superficial and deep s oft tissues of the foot without well-formed or drainable fluid collection/abscess currently seen. 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 There is also a chroni c injury / ligamentous tear of the Lisfranc ligament, in keeping with a Charcot or neuropathic joint. There is also bimalleolar soft tissue swelling and edema. There is no convincing evidence for osteom yelitis on this examination, however. No susceptibility artifact is seen to suggest a foreign body. N o other abnormalities are seen. IMPRESSION: Findings in keeping with a diffuse soft tissue (deep and superficial) cellulitis of the foot with ass ociated phlegmonous change but without evidence for well-formed fluid collection or abscess or convin cing MRI evidence for osteomyelitis. 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 Reported By:
[2017-02-07] MEDS: PHARMACY CONSULT - VANCOMYCIN XX SCH (17:10)
--- NOTE | 2017-02-07 21:01 | PCM.PROG ---
Progress Note - Progress Note for Day of Date: 02/07/17 - Subjective Subjective: WAS ADMITTED FOR LEFT LOWER EXTREMITY CELLULIITIS AND DIABETIC FOOT ULCER. TODAY, HE IS ALERT AND ORIENTED, LYING IN BED ON MORNING ROUNDS. HE CONTINUES WITH COMPLAINTS OF LEFT FOOT PAIN. ON EXAMINATION, LUNGS ARE CLEAR TO AUSCULTATION. ABDOMEN IS ROUND, SOFT, AND NON-TENDER. NORMAL BOWEL SOUNDS ARE NOTED IN ALL QUADRANTS. LEFT LOWER EXTREMITY IS NOTED WITH ERYTHEMA AND EDEMA. LEFT FOOT CONTINUES WITH ERYTHEMA AND EDEMA. FOOT CONTINUES WITH DRAINAGE IN BETWEEN TOES, BUT DRAINAGE HAS SLOWED DOWN SINCE YESTERDAY. PATIENT S VITAL SIGNS THIS MORNING ARE 98.3-80-22-99%-120/60 ABNORMAL LAB VALUES INCLUDE THE FOLLOWING: WBC 12.7, RBC 4.17, HGB 12.3, HCT 35.4, POTASSIUM 2.9, GLUCOSE 115, CALCIUM 8.3, CRP 75.70, ESR 93, ALBUMIN 2.2, GLOBULIN 4.7. AN MRI WAS OBTAINED YESTERDAY. IT REPORTED FINDINGS IN KEEPING WITH A DIFFUSE SOFT TISSUE CELLULITIS OF THE FOOT WITH ASSOCIATED PHLEGMONOUS CHANGE BUT WITHOUT EVIDENCE FOR WELL FORMED FLUID COLLECTION OR ABSCESS OR CONVINCING MRI EVIDENCE FOR OSTEOMYELITIS. HOWEVER, THERE IS EVIDENCE FOR A CHARCOT AND NEUROPATHIC JOINT INVOLVING MULTIPLE MIDFOOT ARTICULATION WITH A CHRONIC INJURY OF THE LISFRANC LIGAMENT/LISFRANC JOINT WITH ABNORMAL WIDENING OF THE LISFRANC JOINT SEEN. WE SPOKE WITH YESTERDAY. HE AGREES WITH CURRENT PLAN OF CARE AND WISHES TO FOLLOW UP WITH PATIENT AFTER HE IS DISCHARGED. WE WILL SPEAK WITH CASE MANAGEMENT TODAY ABOUT ARRANGING FOR IV ANTIBIOTICS FOR A DURATION OF SIX WEEKS AFTER DISCHARGED HOME. WE WILL CONSULT ANESTHESIA FOR PLACEMENT OF PICC LINE DUE TO RE ETCHER COURSE OF ANTIBIOTICS. OTHERWISE, WE WILL CONTINUE WITH CURRENT PLAN OF CARE TODAY. WE PLAN TO FOLLOW UP WITH [facility] AND CONTINUE TO MONITOR PATIENT. - Past Medical Family Social History Past Med/Fam/Surg Hx: No changes since H&P Allergies: Allergies No Known Drug Allergies Allergy (Verified 02/01/17 22:05) - Review of Systems ROS: No change since H&P - Vital Signs and I&O's Vital Signs: Temperature 97.9 F Pulse Rate [Left Brachial] 76 Pulse Rate [Right Brachial] 83 Pulse Rate 107 Respiratory Rate 20 Blood Pressure [Right Arm] 142/89 Blood Pressure [Left Arm] 170/77 Blood Pressure 101/55 O2 Sat by Pulse Oximetry 94 Intake and Output: Intake & Output 02/05/17 02/06/17 02/07/17 02/08/17 11:59 11:59 11:59 11:59 Intake Total 5970 1000 2360 1080 Output Total 900 2350 2024 1600 Balance 5070 -1350 335 -520 - Physical Exam Oriented: Normal. negative: Time, Person, Place, Not Oriented, Unable to test, Other Eyes: Normal. negative: Blurred Vision, Diplopia, Discharge, Pain, Redness, Photophobia, Other Ear: Normal. negative: Right, Left, Swelling, Ecchymosis, Hemotypanum, Abrasion , Laceration Nose: Normal. negative: Injected, Discharge, Blood, Other Throat: Normal Respiratory: Normal. negative: Right, Left, Generalized, Superior, Inferior, Diminished, Wheezes, Rales, Rhonchi, OTHER Cardiovascular: Edema : Normal. negative: Dysuria, Hematuria, Frequency, Discharge, Testicular Pain , Bleeding, , Other Auscultation: Bowel Sounds: Normal Palpation: Normal Tenderness: Normal Skin: Red (LLE AND FOOT), Tender, Hot Musculoskeletal: Swelling (Left foot.), Tender (Left foot arch.), Pulse Deficit (Unable to palpate left DP or PT due to edema. Femoral and popliteal palpable.) Psychiatric: Normal Mood Description: Calm Affect: Normal Speech Pattern: Clear, Appropriate - Laboratory and Diagnostics Result Diagrams: 02/07/17 04:20 02/07/17 11:57 Labs: 02/02/17 00:30 Blood Blood Culture - Final 02/04/17 16:43 Ankle - Left Gram Stain - Final 02/04/17 16:43 Ankle - Left Wound Culture - Final Staphylococcus Aureus 02/02/17 00:35 Blood Blood Culture - Final Laboratory WBC 12.7 X10^3/uL (3.6-10.0) H 02/07/17 04:20 RBC 4.17 X10^6/uL (4.7-6.0) L 02/07/17 04:20 Hgb 12.3 g/dL (13.5-18.0) L 02/07/17 04:20 Hct 35.4 % (42.0-54.0) L 02/07/17 04:20 MCV 85.1 fL (80.0-100.0) 02/07/17 04:20 MCH 29.6 pg (27.0-34.0) 02/07/17 04:20 MCHC 34.8 g/dL (33.0-35.0) 02/07/17 04:20 RDW 14.6 % (11.6-16.5) 02/07/17 04:20 Plt Count 247 X10^3/uL (150.0-450.0) 02/07/17 04:20 MPV 7.7 fL (7.4-11.0) 02/07/17 04:20 Neut % 73.5 % (42.0-75.0) 02/07/17 04:20 Lymph % 14.2 % (21.0-51.0) L 02/07/17 04:20 [place] % 8.9 % (0.0-13.0) 02/07/17 04:20 Eos % 2.8 % (0.9-2.9) 02/07/17 04:20 Baso % 0.6 % (0.2-1.0) 02/07/17 04:20 Neut # 9.3 x10^3/uL (2.2-4.8) H 02/07/17 04:20 Lymph # 1.8 X10^3/uL (1.3-2.9) 02/07/17 04:20 [place] # 1.1 x10^3/uL (0.3-0.8) H 02/07/17 04:20 Eos # 0.4 x10^3/uL (0.0-0.2) H 02/07/17 04:20 Baso # 0.1 X10^3/uL (0.0-0.1) 02/07/17 04:20 Absolute Nucleated RBC 0.0 /100WBC 02/07/17 04:20 ESR 93 MM/HOUR (0-15) H 02/07/17 04:20 Sodium 139 mmol/L (136-145) 02/07/17 04:20 Corrected Sodium 139 mmol/L (136-145) 02/07/17 04:20 Potassium 3.4 mmol/L (3.5-5.1) L 02/07/17 11:57 Chloride 104 mmol/L (98-107) 02/07/17 04:20 Carbon Dioxide 25.3 mmol/L (21-32) 02/07/17 04:20 BUN 11 mg/dL (7-18) 02/07/17 04:20 Creatinine 1.29 mg/dL (0.70-1.30) 02/07/17 04:20 Est GFR (MDRD) Af Amer > 60 (>60) 02/07/17 04:20 Est GFR (MDRD) Non-Af 58 (>60) L 02/07/17 04:20 Glucose 115 mg/dL (65-99) H 02/07/17 04:20 POC Glucose (mg/dL) 244 mg/dL (65-99) H 02/07/17 20:03 Calcium 8.3 mg/dL (8.5-10.1) L 02/07/17 04:20 Corrected Calcium 9.7 mg/dL (8.5-10.1) 02/07/17 04:20 Magnesium 1.5 mg/dL (1.7-2.9) L 02/06/17 04:35 Total Bilirubin 0.80 mg/dL (0.2-1.0) 02/07/17 04:20 AST 29 Units/L (15-37) 02/07/17 04:20 ALT 34 Units/L (12-78) 02/07/17 04:20 Alkaline Phosphatase 47 Units/L (46-116) 02/07/17 04:20 C-Reactive Protein 75.70 mg/L (0-3.0) H 02/07/17 04:20 Total Protein 6.9 g/dL (6.4-8.2) 02/07/17 04:20 Albumin 2.2 g/dL (3.4-5.0) L 02/07/17 04:20 Globulin 4.7 g/dL (2.5-4.5) H 02/07/17 04:20 Albumin/Globulin Ratio 0.5 Ratio (1.1-2.1) L 02/07/17 04:20 Vancomycin Trough 14.8 ug/mL (15-20) L 02/06/17 19:43 - Plan (1) Cellulitis of left lower extremity Status: Acute Plan: CONTINUE IV ABTX, IV HYDRATION, WOUND CARE AND DRESSING CHANGES, CONTINUE IV ABX, CONTINUE TO MONITOR (2) Staphylococcus aureus bacteremia Status: Acute Plan: CONTINUE VANCOMYCIN 1GM IV Q12H, CONTINUE CEFEPIME 2MG IV DAILY, CONTINUE TO MONITOR (3) CAD (coronary artery disease) Status: Acute Qualifiers: Coronary Disease-Associated Artery/Lesion type: cahto artery [place] vs. transplanted heart: cahto heart Associated angina: with unspecified angina Qualified Code(s): I25.119 - Atherosclerotic heart disease of cahto coronary artery with unspecified angina pectoris Plan: CONTINUE ASPIRIN, CONTINUE TO MONITOR
[2017-02-07] MEDS: SNACK - Diabetic Appropriate PO SCH (21:48)
[2017-02-07] MEDS: FLOMAX PO SCH (21:48)
[2017-02-07] MEDS: LIPITOR TAB 40 MG PO SCH (21:48)
[2017-02-08 05:33] LABS: BASOPHILS # (AUTO) 0.1 X10^3/uL (0.0-0.1); BASOPHILS % (AUTO) 0.6 % (0.2-1.0); EOSINOPHILS # (AUTO) 0.3 x10^3/uL (0.0-0.2); EOSINOPHILS % (AUTO) 2.6 % (0.9-2.9); HEMATOCRIT 38.1 % (42.0-54.0); LYMPHOCYTES # (AUTO) 2.2 X10^3/uL (1.3-2.9); LYMPHOCYTES % (AUTO) 16.7 % (21.0-51.0); MEAN CORPUSCULAR HEMOGLOBIN 29.2 pg (27.0-34.0); MEAN CORPUSCULAR HGB CONC 34.2 g/dL (33.0-35.0); MEAN CORPUSCULAR VOLUME 85.5 fL (80.0-100.0); MEAN PLATELET VOLUME 7.6 fL (7.4-11.0); MONOCYTES % (AUTO) 7.6 % (0.0-13.0); NEUTROPHILS # (AUTO) 9.4 x10^3/uL (2.2-4.8); NEUTROPHILS % (AUTO) 72.5 % (42.0-75.0); PLATELET COUNT 270 X10^3/uL (150.0-450.0); RED BLOOD COUNT 4.46 X10^6/uL (4.7-6.0); RED CELL DISTRIBUTION WIDTH 14.5 % (11.6-16.5); WHITE BLOOD COUNT 12.9 X10^3/uL (3.6-10.0)
[2017-02-08 05:44] LABS: ALANINE AMINOTRANSFERASE 34 Units/L (12-78); ALBUMIN 2.3 g/dL (3.4-5.0); ALKALINE PHOSPHATASE 47 Units/L (46-116); ASPARTATE AMINO TRANSFERASE 27 Units/L (15-37); BLOOD UREA NITROGEN 8 mg/dL (7-18); CALCIUM 8.4 mg/dL (8.5-10.1); CARBON DIOXIDE 27.7 mmol/L (21-32); CHLORIDE 103 mmol/L (98-107); COR CA(FOR HYPOALB) 9.8 mg/dL (8.5-10.1); CREATININE 1.41 mg/dL (0.70-1.30); MAGNESIUM 1.8 mg/dL (1.7-2.9); SODIUM 141 mmol/L (136-145); TOTAL PROTEIN 7.2 g/dL (6.4-8.2); eGFR BLACK RACES > 60 (>60); eGFR NON BLACK RACES 52 (>60)
[2017-02-08] MEDS: NS 1000 ML 1,000 ML IV SCH (06:10)
[2017-02-08 06:25] LABS: ERYTHROCYTE SEDIMENTATION RATE 87 MM/HOUR (0-15)
[2017-02-08] MEDS ORDERED: MAXIPIME ONE (08:09)
[2017-02-08] MEDS ORDERED: NS 100 ML IV + SPIKE MINIBAG* 100 ML IV ONE (08:09)
[2017-02-08] MEDS: VANCOMYCIN HCL 500 MG VIAL 250 MG, VANCOMYCIN HCL 1 GM VIAL 1 GM in D5W 250 ML IV 250 ML IV SCH (09:45)
[2017-02-08] MEDS: ASPIRIN PO SCH (09:45)
[2017-02-08] MEDS: MAXIPIME 2 GM in NS 100 ML IV + SPIKE MINIBAG* 100 ML IV SCH (09:45)
[2017-02-08] MEDS: AMARYL TAB 4 MG PO SCH (09:45)
[2017-02-08] MEDS: NORVASC TAB 5 MG PO SCH (09:45)
[2017-02-08] MEDS: PROLENSA OPHTH 1 DOSE AFFEYE SCH (09:46)
[2017-02-08] MEDS: SYNTHROID 175 mcg TAB PO SCH (09:46)
[2017-02-08] MEDS: PRED FORTE 1 % AFFEYE SCH ×2 (09:46→14:11)
[2017-02-08] MEDS ORDERED: XYLOCAINE 1 % (PLAIN) ONE (11:29)
[2017-02-08 12:31] VITALS: BP 154/76
--- NOTE | 2017-02-08 13:11 | RAD ---
HISTORY: PICC line placement Study: Single-view chest, done portably Comparison: No priors Findings: In addition to median sternotomy sutures, there are larger metallic objects present overlying the gabe rnum. The uppermost metallic object is seen to obscure the tip of the left-sided PICC line which is l ikely present within the mid SVC. No pneumothorax is seen. The lungs and pleural spaces are clear. Tr achea is midline. There is cardiomegaly with aortic uncoiling. Osseous structures displayed no acute abnormality. IMPRESSION: Left-sided PICC line. The tip is somewhat obscured by overlying metallic hardware in the region of th e sternum. The catheter tip is likely at the level of the mid SVC. No pneumothorax is seen. Clear lungs Hypertensive configuration. Reported By:
--- NOTE | 2017-02-08 13:23 | DR.UPDATE ---
H&P Update History and Physical Update: History and Physical reviewed and patient examined. Changes noted: NO Yes with the following:Agree with H&P from Dr Zacarias. Will perform PICC for [facility]ent[facility] abx therapy. Procedures (ALL) - Central Line Placement PCM.CLCO: written consent Time out performed: Yes Patient placed pm monitor/pulse ox: Yes MD prep: mask, gown, gloves, other Centrial line prep: chlorhexidine scrub Local anesthsia used: lidocane 1% Ultrasound used for placement: Yes Central line lumen ininserted: double (5FR power picc. trimmed to 45cm with 5cm out) Post procedure: good blood return, all ports aspirated, flushed,capped, sterile dressing applied Post procedure xray: tip oc catheter in good position, no pneumothorax seen Patient tolerated procedure: Yes Complications: none
[2017-02-08] MEDS ORDERED: VANCOMYCIN HCL 500 MG VIAL 250 MG, VANCOMYCIN HCL 1 GM VIAL 1 GM in NS 250 ML IV 250 ML IV SCH (14:00)
[2017-02-08] MEDS ORDERED: MAXIPIME IV SCH (21:00)
[2017-02-08] MEDS ORDERED: D5W IV SCH (21:00)
== END 2017-02-08 15:20 | disposition home health service (06) | DRG 603 ==
LOC: ER 22:03 → MED/SURG 02-02 02:53 → OBSVTOIN 02-04 09:00
PROVIDERS: ADMIT Internal Medicine; ATTEND Internal Medicine
PROC: B548ZZA Ultrasonography of Superior Vena Cava, Guidance (ICD-10-PCS; 2007-02-08)
PROC: 02HV33Z Insertion of Infusion Device into Superior Vena Cava, Percutaneous Approach (ICD-10-PCS; principal; 2017-02-08)
DX: L03.116 Cellulitis of left lower limb (principal); L97.429 Non-pressure chronic ulcer of left heel and midfoot with unspecified severity; E10.621 Type 1 diabetes mellitus with foot ulcer; I25.10 Atherosclerotic heart disease of native coronary artery without angina pectoris; R06.02 Shortness of breath; E86.0 Dehydration; B95.62 Methicillin resistant Staphylococcus aureus infection as the cause of diseases classified elsewhere; I25.119 Atherosclerotic heart disease of native coronary artery with unspecified angina pectoris
CPT/HCPCS: 36415; 71010; 73630; 73701; 73722; 80053; 80202; 82565; 83735; 84132; 85025; 85652; 86140; 87040; 87070; 87075; 87077; 87186; 87205; 96365; 99284; A4222; G0378; J0692; J0712; J1450; J2001; J2543; J3370